=== PATIENT | female | born 1955 | race Caucasian/White ===

== ENCOUNTER 2022-05-25 11:26 | Emergency (ER) | payer MEDICARE, BC ==
[2022-05-25 13:08] LABS: CARBON DIOXIDE,CO2 27.5 mmol/L (21.0-32.0); POTASSIUM,K 4.1 mmol/L (3.5-5.1)
[2022-05-25] MEDS ORDERED: Lisinopril 10 MG Tab PO ONE (15:28)
== END 2022-05-25 16:50 | disposition home or self-care (01) ==
LOC: MW.ED 11:26
DX: I10 Essential (primary) hypertension (principal); Z88.1 Allergy status to other antibiotic agents; Z88.8 Allergy status to other drugs, medicaments and biological substances; Z79.899 Other long term (current) drug therapy
CPT/HCPCS: 36415; 80048; 81003; 84484; 85025; 93005; 99283; A9270